=== PATIENT | male | born 1950 | race Caucasian/White ===

== ENCOUNTER 2016-09-25 12:04 | Emergency (ER) | payer MEDICARE, OTHER, MEDICAID ==
[~2016-09-25] VITALS: Ht 175.3 cm; Wt 86.4 kg
[~2016-09-25 12:04] MED LIST: ASPIRIN 32325 MG/TAB PO; CELEBREX 200MG200 MG PO; CLOPIDOGREL; DAZIDOX10 MG PO; FERRALET 901 TAB PO; FLOMAX 0.40.4 MG/CAP PO; FOLIC ACID 11 MG/TA1 PO; IMDUR 30MG30 MG/TAB PO; IMDUR30 MG PO; IRON90 MG PO; LEVEMIR100 U/ML SC; LOPRESSOR 225 MG/TAB PO; METOPROLOL SUCC25 MG PO; NAPROSYN500 MG PO; NEURONTIN300 MG/CAP; NOVOLOG FLEX100 U/ML SQ; NOVOLOG100 U/ML IV; OXYCONTIN15 MG PO; PERCOCET 325 MG1 TA2 PO; PERCOCET 325 MG1 TAB PO; PHENERGAN 25 TA25 MG PO; PRAVACHOL 40MG40 MG PO; PRAVACHOL20 MG PO; PRILOSEC10 MG PO; PRINIVIL20 MG PO; ROXICODONE 55 MG/TAB PO; SUPER EPA W/BO400 MG PO; TOPROL XL 25MG25 MG; TRILIPIX 135MG; VITAMIN C500 MG PO; ZOFRAN 4MG T4 MG/TAB PO
[2016-09-25 12:09] VITALS: TEMP 97.8
[2016-09-25 12:47] LABS: ADJUSTED CALCIUM 8.9 mg/dL (8.4-10.2); ALBUMIN 4.3 gm/dL (3.5-5.0); BILIRUBIN,TOTAL 0.6 mg/dL (0.0-1.0); CALCIUM 9.1 mg/dL (8.4-10.2); CREATININE, serum 1.74 mg/dL (0.66-1.25); POTASSIUM 4.6 mmol/L (3.4-5.0); TOTAL PROTEIN 7.1 gm/dL (6.4-8.2)
[2016-09-25 13:17] LABS: BASO % 0.4 % (0.0-2.0); EOS # 0.1 (0.0-0.7); EOS % 1.7 % (0-4.0); GRAN # 5.5 (1.4-6.5); GRAN % 73.6 % (42.2-75.2); HEMATOCRIT 42.1 % (42.0-52.0); HEMOGLOBIN 14.4 g/dl (13.5-18.0); MEAN CELL VOLUME 84 fl (80.0-100.0); MEAN CORPUSCULAR HEMOGLOBIN 29 pg (27.0-31.0); MEAN CORPUSCULAR HGB CONC 34 g/dl (33.0-37.0); MEAN PLATELET VOLUME 11.5 fl (7.4-10.4); MONO # 0.7 (0.1-0.6); MONO % 9.9 % (1.7-9.3); PLATELET COUNT 180 K/mm3 (130-400); RED BLOOD COUNT 5.03 M/mm3 (4.20-5.60); REDCELL DISTRIBUTION WIDTH-CV 13.4 % (11.5-14.5); WHITE BLOOD COUNT 7.4 K/mm3 (4.8-10.8)
[2016-09-25 14:39] VITALS: BP 130/81; PULSE 73
== END 2016-09-25 14:46 | disposition home or self-care (01) ==
LOC: COL.ER 12:04
PROVIDERS: Family Medicine
DX: E11.649 Type 2 diabetes mellitus with hypoglycemia without coma (principal); E86.0 Dehydration; I25.10 Atherosclerotic heart disease of native coronary artery without angina pectoris; F17.210 Nicotine dependence, cigarettes, uncomplicated; Z95.1 Presence of aortocoronary bypass graft; Z79.4 Long term (current) use of insulin; Z79.82 Long term (current) use of aspirin
CPT/HCPCS: J7030

== ENCOUNTER 2017-04-06 10:59 | Observation (INO) | payer MEDICARE, OTHER, MEDICAID ==
[~2017-04-06] VITALS: Ht 177.8 cm; Wt 97.4 kg
[~2017-04-06 10:59] MED LIST changes: -NEURONTIN300 MG/CAP; +NEURONTIN300 MG/CAP PO; +OMEGA-3 1000 MG1 CAP PO; -SUPER EPA W/BO400 MG PO
[2017-04-06] MEDS ORDERED: PROSCAR 5MG5 MG PO (11:11)
[2017-04-06] MEDS ORDERED: LOPRESSOR 225 MG/TAB PO (11:11)
[2017-04-06 11:28] LABS: HEMOGLOBIN 16.5 g/dl (13.5-18.0); MEAN CELL VOLUME 83 fl (80.0-100.0); MEAN CORPUSCULAR HEMOGLOBIN 28 pg (27.0-31.0); MEAN CORPUSCULAR HGB CONC 34 g/dl (33.0-37.0); MEAN PLATELET VOLUME 11.2 fl (7.4-10.4); PLATELET COUNT 147 K/mm3 (130-400); RED BLOOD COUNT 5.88 M/mm3 (4.20-5.60); REDCELL DISTRIBUTION WIDTH-CV 13.4 % (11.5-14.5)
[2017-04-06 11:37] LABS: ALBUMIN 4.7 gm/dL (3.5-5.0); BILIRUBIN,TOTAL 0.9 mg/dL (0.0-1.0); CALCIUM 9.4 mg/dL (8.4-10.2); CREATININE, serum 1.44 mg/dL (0.66-1.25); POTASSIUM 4.9 mmol/L (3.4-5.0); TOTAL PROTEIN 7.6 gm/dL (6.4-8.2)
[2017-04-06 12:40] LABS: COLLECTION METHOD CLEAN CATCH
[2017-04-06 12:42] LABS: BAND 34 % (0-10); LYMPHOCYTE 4 % (20.0-51.0); NEUTROPHILS 60 % (42.0-75.2); PLATELET ESTIMATE DECREASED (NORMAL)
[2017-04-06 12:49] LABS: MUCOUS Present /lpf; PH 5 (5-8); SQUAMOUS EPITHELIAL None Seen /hpf; URINE APPEARANCE Clear; URINE BACTERIA None Seen /hpf; URINE BILIRUBIN Negative (NEGATIVE); URINE BLOOD 1+ (NEGATIVE); URINE COLOR Yellow; URINE GLUCOSE 3+ (NEGATIVE); URINE KETONE 1+ (NEGATIVE); URINE LEUKOCYTE ESTERASE Negative (NEGATIVE); URINE NITRATE Negative (NEGATIVE); URINE PROTEIN(semi-quant) 2+ (NEGATIVE); URINE RBC 0-2 /hpf; URINE UROBILINOGEN Negative (NEGATIVE)
[2017-04-06] MEDS ORDERED: ZOFRAN 4MG T4 MG/TAB PO (13:22)
[2017-04-06 17:33] VITALS: BP 153/77; PULSE 98; TEMP 98.5
[2017-04-06 17:59] LABS: INFLUENZA A NEGATIVE; INFLUENZA B NEGATIVE
[2017-04-06 21:00] VITALS: BP 125/55; PULSE 75; TEMP 100.1
[2017-04-06 23:50] VITALS: BP 145/61; PULSE 91; TEMP 99.3
[2017-04-07 04:22] VITALS: BP 161/73; PULSE 74; TEMP 99.4
[2017-04-07 06:46] LABS: CALCIUM 7.6 mg/dL (8.4-10.2); CREATININE, serum 1.29 mg/dL (0.66-1.25); MAGNESIUM 1.6 mg/dL (1.6-2.3); POTASSIUM 3.6 mmol/L (3.4-5.0)
[2017-04-07 08:54] VITALS: BP 168/72; PULSE 76; TEMP 98.9
[2017-04-07] MEDS ORDERED: ZOFRAN 4MG T4 MG/TAB PO (09:09)
== END 2017-04-07 09:52 | disposition home or self-care (01) ==
LOC: COL.ER 10:59 → MEDICAL 16:18
PROVIDERS: Emergency Medicine; Internal Medicine
DX: K52.9 Noninfective gastroenteritis and colitis, unspecified (principal); N17.9 Acute kidney failure, unspecified; E11.649 Type 2 diabetes mellitus with hypoglycemia without coma; I25.10 Atherosclerotic heart disease of native coronary artery without angina pectoris; Z79.01 Long term (current) use of anticoagulants; Z96.641 Presence of right artificial hip joint; Z95.5 Presence of coronary angioplasty implant and graft; F17.210 Nicotine dependence, cigarettes, uncomplicated
CPT/HCPCS: G0378; J1815; J2405; J2550; J7030

== ENCOUNTER 2018-07-31 16:18 | Observation (INO) | payer MEDICARE, OTHER ==
[~2018-07-31] VITALS: Ht 175.3 cm; Wt 88.6 kg
[~2018-07-31 16:18] MED LIST changes: +PROSCAR 5MG5 MG PO
[2018-07-31 17:10] LABS: BASO % 0.5 % (0.0-2.0); EOS # 0.3 (0.0-0.7); EOS % 4.5 % (0-4.0); GRAN # 4.9 (1.4-6.5); HEMATOCRIT 41.8 % (42.0-52.0); HEMOGLOBIN 13.9 g/dl (13.5-18.0); LYMPH # 1.5 (1.2-3.4); LYMPH % 19.7 % (20.0-51.0); MEAN CELL VOLUME 87 fl (80.0-100.0); MEAN CORPUSCULAR HEMOGLOBIN 29 pg (27.0-31.0); MEAN CORPUSCULAR HGB CONC 33 g/dl (33.0-37.0); MEAN PLATELET VOLUME 10.6 fl (7.4-10.4); MONO # 0.7 (0.1-0.6); MONO % 9.2 % (1.7-9.3); PLATELET COUNT 183 K/mm3 (130-400); RED BLOOD COUNT 4.83 M/mm3 (4.20-5.60); REDCELL DISTRIBUTION WIDTH-CV 13.1 % (11.5-14.5)
[2018-07-31 17:23] LABS: ALBUMIN 3.8 gm/dL (3.5-5.0); BILIRUBIN,TOTAL 0.4 mg/dL (0.0-1.0); C-REACTIVE PROTEIN 5.1 mg/dL (0.0-0.9); CALCIUM 8.9 mg/dL (8.4-10.2); CREATININE, serum 1.32 (0.66-1.25); POTASSIUM 4.1 mmol/L (3.4-5.0); TOTAL PROTEIN 6.8 gm/dL (6.4-8.2)
[2018-07-31] MEDS ORDERED: PROSCAR 5MG5 MG PO (19:04)
[2018-07-31 20:15] LABS: COLLECTION METHOD CLEAN CATCH
[2018-07-31 20:21] LABS: MUCOUS Present /lpf; PH 5 (5-8); SQUAMOUS EPITHELIAL None Seen /hpf; URINE APPEARANCE Clear; URINE BACTERIA None Seen /hpf; URINE BILIRUBIN Negative (NEGATIVE); URINE BLOOD Negative (NEGATIVE); URINE COLOR Straw; URINE GLUCOSE Negative (NEGATIVE); URINE KETONE Negative (NEGATIVE); URINE LEUKOCYTE ESTERASE Negative (NEGATIVE); URINE NITRATE Negative (NEGATIVE); URINE PROTEIN(semi-quant) Negative (NEGATIVE); URINE RBC 0-2 /hpf; URINE UROBILINOGEN Negative (NEGATIVE)
[2018-07-31] MEDS ORDERED: NEURONTIN600 MG/TAB PO (21:00)
--- NOTE | 2018-07-31 21:00 | NUR ---
07/31 2099 PATIENT ADMITTED TO THE FLOOR FROM ER FOR DIVERTICULITIS. UPON ARRIVAL TO FLOOR PATIENT A/O X 4. DENIES C/O OF PAIN OR DISCOMFORT. REPORTS CONCERNS OF HYPOGLYCEMIA D/T BEING ON CLEAR LIQUIDS. DENIES SYPTOMS OF HYPOGLYCEMIA AT THIS TIME. SEE CHART FOR BLOOD GLUCOSE OBTAINED AND INTERVENTIONS. ADMISSIONS ASSESSMENTS COMPLETED. LUNG SOUNDS CLEAR THROUGHOUT WITH GOOD AIR EXCHANGE. HEART REGULAR RATE AND RHYTHM. NO SKIN ISSUES OBSERVED OR REPORTED. REPORTS NEUROPATHY IN BILATERAL LOWER EXTREMITIES.
[2018-07-31 21:08] VITALS: BP 168/76; PULSE 64; TEMP 97.7
[2018-07-31 22:59] LABS: COLLECTION METHOD CLEAN CATCH
[2018-07-31 23:12] VITALS: BP 153/78; PULSE 58; TEMP 97.8
[2018-07-31 23:14] LABS: PH 5 (5-8); SQUAMOUS EPITHELIAL None Seen /hpf; URINE APPEARANCE Clear; URINE BACTERIA None Seen /hpf; URINE BILIRUBIN Negative (NEGATIVE); URINE BLOOD Negative (NEGATIVE); URINE COLOR Straw; URINE GLUCOSE Negative (NEGATIVE); URINE KETONE Negative (NEGATIVE); URINE LEUKOCYTE ESTERASE Negative (NEGATIVE); URINE NITRATE Negative (NEGATIVE); URINE PROTEIN(semi-quant) Negative (NEGATIVE); URINE RBC 0-2 /hpf; URINE UROBILINOGEN Negative (NEGATIVE)
--- NOTE | 2018-07-31 23:37 | NUR ---
IV moved to left forearm. Left AC INT at this time.
--- NOTE | 2018-08-01 04:17 | NUR ---
PATIENT LAYING AWAKE IN BED. ATTITUDE CALM AND QUIET. DENIES C/O PAIN OR DISCOMFORT. NO NAUSEA OR VOMITTING. CONTINUES WITH BOWEL PREP ORDERED. NO BOWEL MOVEMENTS OBSERVED OR REPORTED.
--- NOTE | 2018-08-01 05:56 | NUR ---
PATIENT UP TO BATHROOM. LARGE LOOSE WATERY STOOL. BROWNISH RED IN COLOR WITH NO VISIBLE BLOOD CLOTS. DENIES C/O OF NAUSEA OR ABD PAIN. FLAGYL 500MG IV STARTED @ 100ML/HR ORDERED. PATIENT CONTINUING TO WORK ON BOWEL PREP ORDERED. ENCOURAGED TO TRY AND DRINK MUCH TOLERABLE OVER NEXT HOUR. PATIENT PLEASANT AND COOPERATIVE DURING CARES AT THIS TIME.
[2018-08-01 05:58] LABS: BASO % 0.8 % (0.0-2.0); EOS # 0.3 (0.0-0.7); EOS % 6.6 % (0-4.0); GRAN # 2.6 (1.4-6.5); GRAN % 52.7 % (42.2-75.2); HEMOGLOBIN 13.2 g/dl (13.5-18.0); LYMPH # 1.4 (1.2-3.4); LYMPH % 28.1 % (20.0-51.0); MEAN CELL VOLUME 87 fl (80.0-100.0); MEAN CORPUSCULAR HEMOGLOBIN 29 pg (27.0-31.0); MEAN CORPUSCULAR HGB CONC 33 g/dl (33.0-37.0); MEAN PLATELET VOLUME 10.6 fl (7.4-10.4); MONO # 0.6 (0.1-0.6); MONO % 11.6 % (1.7-9.3); PLATELET COUNT 156 K/mm3 (130-400); RED BLOOD COUNT 4.62 M/mm3 (4.20-5.60); REDCELL DISTRIBUTION WIDTH-CV 13.1 % (11.5-14.5)
[2018-08-01 06:05] LABS: CALCIUM 8.7 mg/dL (8.4-10.2); CREATININE, serum 1.22 (0.66-1.25)
--- NOTE | 2018-08-01 06:50 | NUR ---
Report given to VICKY Amaya.
[2018-08-01 07:05] VITALS: BP 156/73; PULSE 56; TEMP 97.9
--- NOTE | 2018-08-01 08:35 | NUR ---
Assessment complete.patient awake,a/ox3.denies pain or discomfort at this time.LSCTA.IVF infusing.patient reports having bright red stools while on bowel prep.clonscopy scheduled for 1230 today.encouraged patient to keep drinking miralax.voiced understanding.all meds given.patient denies any needs at this time.will continue to monitor.call light in reach
--- NOTE | 2018-08-01 10:43 | NUR ---
PAT and EDWARDM met with patient about change in status. NCM explained to patient the difference between inpatient and observation. SW presented [place] form to kosta. He signed and was provided a copy. PAT then met with patient about discharge planning. Patient lives independently at home. Patient does not use any DME or home health. Patient's PCP is Dr Brennan and he obtain prescriptions from [facility]. Patient does not have a DPOA and is not interested in obtaining one at this time. PAT does not anticipate any discharge needs.
[2018-08-01 10:58] VITALS: BP 151/71; PULSE 54; TEMP 97.6
--- NOTE | 2018-08-01 11:02 | NUR ---
Initial visit; Patient thanked Jewel Hole Driller for looking in on him and stated that he is Jew and thanked Jewel Hole Driller for offering God's blessings.
--- NOTE | 2018-08-01 12:00 | NUR ---
PT TAKEN TO ENDOSCOPY FOR A COLONSCOPY.
--- NOTE | 2018-08-01 13:34 | NUR ---
PT RETURN TO ROOM AT THIS TIME.AWAK AND AMBULATING.DENIES ANY NEEDS AT THIS TIME.WILL CONTINUE TOO MONITOR.CALL LIGHT IN REACH
[2018-08-01 15:32] VITALS: BP 144/51; PULSE 64; TEMP 97.6
--- NOTE | 2018-08-01 16:47 | NUR ---
PT RESTING IN BED AT THIS TIME.TOLERATED FOOD WELL.IVF INFUSING.VSS.DENIES ANY NEEDS AT THIS TIME.CALL LIGHT IN REACH
--- NOTE | 2018-08-01 18:24 | NUR ---
PATIENT RESTING IN BED AT THIS TIME.DENIES ANY NEEDS AT THIS TIME.DENIES ANY MORE GI BLEED AT THIS TIME.IVF INFUSING.WILL CONTINUE TO MONITOR.CALL LIGHT IN REACH
--- NOTE | 2018-08-01 18:46 | NUR ---
REPORT GIVEN TO MIREYA RN.
[2018-08-01 20:04] VITALS: BP 169/66; PULSE 60; TEMP 98.1
--- NOTE | 2018-08-01 21:19 | NUR ---
ASSESSMENT COMPLETED AT 1999. PATIENT LAYING IN BED WATCH TV AND PLAYING ON PHONE. DENIES C/O OF PAIN OR DISCOMFORT. NO NAUSEA OR ABD PAIN. FINISHED FULL LIQUID MEAL WITH NO COMPLAINTS. IV FLUIDS AND ANTIBIOTICS INFUSING ORDERED. NOVOLG 4 UNITS SQ GIVEN ORDERED FOR BLOOD GLUCOSE OF 284. CONTINUE TO HOLD LEVEMIR. PATIENT DENIES NEEDS OR CONCERNS AT END OF VISIT.
[2018-08-01 23:46] VITALS: BP 132/77; PULSE 54; TEMP 98.1
--- NOTE | 2018-08-02 00:21 | NUR ---
Patient resting in bed asleep. Call light in reach.
[2018-08-02 03:32] VITALS: BP 146/61; PULSE 51; TEMP 97.5
--- NOTE | 2018-08-02 06:08 | NUR ---
PATIENT HAD UNEVENTFUL NIGHT. NO COMPLAINTS OF PAIN OR DISCOMFORT. NO NAUSEA OR VOMITTING. NO OBSERVED OR REPORTED BLLODY STOOLS. IV ANTIBIOTICS AND FLUIDS ADMINISTERED ORDERED. LEVEMIR HELD PER ORDER. CONTINUES WITH FULL LIQUID DIET WITH NO COMPLICATIONS.
[2018-08-02 06:12] LABS: BASO % 0.7 % (0.0-2.0); EOS # 0.3 (0.0-0.7); EOS % 7.4 % (0-4.0); GRAN # 1.8 (1.4-6.5); GRAN % 44.3 % (42.2-75.2); HEMATOCRIT 38.4 % (42.0-52.0); HEMOGLOBIN 12.7 g/dl (13.5-18.0); LYMPH # 1.5 (1.2-3.4); LYMPH % 37.5 % (20.0-51.0); MEAN CELL VOLUME 87 fl (80.0-100.0); MEAN CORPUSCULAR HEMOGLOBIN 29 pg (27.0-31.0); MEAN CORPUSCULAR HGB CONC 33 g/dl (33.0-37.0); MEAN PLATELET VOLUME 10.9 fl (7.4-10.4); MONO # 0.4 (0.1-0.6); MONO % 9.9 % (1.7-9.3); PLATELET COUNT 144 K/mm3 (130-400); RED BLOOD COUNT 4.43 M/mm3 (4.20-5.60); REDCELL DISTRIBUTION WIDTH-CV 12.7 % (11.5-14.5)
[2018-08-02 06:27] LABS: CALCIUM 8.5 mg/dL (8.4-10.2); CREATININE, serum 1.24 (0.66-1.25); POTASSIUM 4.2 mmol/L (3.4-5.0)
--- NOTE | 2018-08-02 06:56 | NUR ---
Report given to Yodit Amaya
[2018-08-02 07:28] VITALS: BP 174/81; PULSE 54; TEMP 98.2
--- NOTE | 2018-08-02 08:00 | NUR ---
ASSESSMENT COMPLETE.PATIENT AWAKE.A/OX3.DENIES PAIN OR DISCOMFORT AT THIS TIME.LSCTA.PT DENIES N/V/D.DENIES HAVING ANY BLOODY STOOL.STATES HE FEELS BETTER.IVF INFUSING.DIET ADVANCED.NO OTHER CONCERNS VOICE AT THIS TIME.CALL LIGHT IN REACH
--- NOTE | 2018-08-02 08:28 | NUR ---
received report from VICKY mesa.
[2018-08-02] MEDS ORDERED: CIPRO 500MG TA500 MG PO (09:31)
[2018-08-02] MEDS ORDERED: FLAGYL500 MG PO (09:32)
[2018-08-02 10:59] VITALS: BP 151/74; PULSE 55; TEMP 97.7
--- NOTE | 2018-08-02 11:40 | NUR ---
pt discharge home at this time.all discharge instructions reviewed.iv and tele discontinued.all questions answered.all belongings taken and all paperwork signed.This RN escorted patient out.
== END 2018-08-02 11:44 | disposition home or self-care (01) ==
LOC: COL.ER 16:18 → MEDICAL 18:11
PROVIDERS: Family Medicine; Nurse Practitioner Family; ADMIT Internal Medicine
DX: K92.1 Melena (principal); K57.30 Diverticulosis of large intestine without perforation or abscess without bleeding; Z86.010 Personal history of colon polyps; I25.10 Atherosclerotic heart disease of native coronary artery without angina pectoris; I25.2 Old myocardial infarction; Z95.1 Presence of aortocoronary bypass graft; I12.9 Hypertensive chronic kidney disease with stage 1 through stage 4 chronic kidney disease, or unspecified chronic kidney disease; E11.22 Type 2 diabetes mellitus with diabetic chronic kidney disease; N40.0 Benign prostatic hyperplasia without lower urinary tract symptoms; N18.9 Chronic kidney disease, unspecified; E11.40 Type 2 diabetes mellitus with diabetic neuropathy, unspecified; Z85.46 Personal history of malignant neoplasm of prostate; E11.649 Type 2 diabetes mellitus with hypoglycemia without coma; Z79.4 Long term (current) use of insulin; Z79.82 Long term (current) use of aspirin; F17.290 Nicotine dependence, other tobacco product, uncomplicated; Z80.0 Family history of malignant neoplasm of digestive organs; Z83.79 Family history of other diseases of the digestive system; Z96.641 Presence of right artificial hip joint
CPT/HCPCS: G0378; J0744; J1815; J2405; J2704; J3010; J7030; Q9967

== ENCOUNTER → 2018-08-15 | Outpatient (CLI) | payer MEDICARE, OTHER ==
[~2018-08-15] MED LIST changes: +CIPRO 500MG TA500 MG PO; +FLAGYL500 MG PO; +NEURONTIN600 MG/TAB PO
== END ==
LOC: MHCPAIN 15:09
DX: G89.29 Other chronic pain (principal); M47.817 Spondylosis without myelopathy or radiculopathy, lumbosacral region; M53.3 Sacrococcygeal disorders, not elsewhere classified
CPT/HCPCS: G0463

== ENCOUNTER → 2018-08-17 | Outpatient (CLI) | payer MEDICARE, OTHER | LOC: MHCPAIN 14:45 | DX: M47.817 Spondylosis without myelopathy or radiculopathy, lumbosacral region (principal); M54.16 Radiculopathy, lumbar region | CPT/HCPCS: J1040; Q9967 ==

== ENCOUNTER → 2018-09-19 | Outpatient (CLI) | payer MEDICARE, OTHER | LOC: MHCPAIN 15:02 | DX: G89.29 Other chronic pain (principal); M47.817 Spondylosis without myelopathy or radiculopathy, lumbosacral region; M53.3 Sacrococcygeal disorders, not elsewhere classified | CPT/HCPCS: G0463 ==

== ENCOUNTER → 2021-08-20 | Outpatient (CLI) | payer MEDICARE | LOC: COL.RAD 14:00 | DX: C61 Malignant neoplasm of prostate (principal); K76.0 Fatty (change of) liver, not elsewhere classified; K82.9 Disease of gallbladder, unspecified; R07.81 Pleurodynia; I51.7 Cardiomegaly; K44.9 Diaphragmatic hernia without obstruction or gangrene | CPT/HCPCS: Q9967 ==

== ENCOUNTER → 2021-09-08 | Outpatient (CLI) | payer MEDICARE, MEDICAID | LOC: COL.RAD 09-03 09:15 | DX: S24.112A Complete lesion at T2-T6 level of thoracic spinal cord, initial encounter (principal); X58.XXXA Exposure to other specified factors, initial encounter | CPT/HCPCS: A9503 ==

== ENCOUNTER 2021-11-06 05:33 | Day surgery (SDC) | payer MEDICARE, MEDICAID ==
[~2021-11-06] VITALS: Ht 175.3 cm; Wt 97.5 kg
[2021-11-06] VITALS (11 sets, daily range): BP systolic 111–153; BP diastolic 62–79; PULSE 49–73; TEMP 98.5
[2021-11-06] MEDS ORDERED: COREG 6.256.25 MG/TA PO (06:05)
[2021-11-06] MEDS ORDERED: PRILOTC PO (06:32)
[2021-11-06] MEDS ORDERED: LIPITOR 40MG TA40 MG PO (06:33)
[2021-11-06] MEDS ORDERED: APRESOLINE50 MG PO (06:34)
[2021-11-06] MEDS ORDERED: TYLENOL 8 HR PO (06:34)
--- NOTE | 2021-11-06 06:48 | NUR ---
NISHA Jay was notified of the patient's blood sugar reading of 217 and his blood pressure reading of 187/69. He verbalized understanding of the report given and has no further orders for the nurse at this time.
--- NOTE | 2021-11-06 06:57 | NUR ---
The patient has been taken back to the operating room via cart and his chart was sent with him to surgery. The patient's belongings were taken over to the recovery room and will be transferred with the patient to his room post operatively.
[2021-11-06] MEDS ORDERED: PROSCAR 5MG5 MG PO (13:07)
[2021-11-06] MEDS ORDERED: FLOMAX 0.40.4 MG/CAP PO (13:08)
--- NOTE | 2021-11-06 17:07 | NUR ---
PT A/OX4, ARRIVED TO THE FLOOR AT 1123 FROM PACU, WITH IV INFUSING WELL ON LH, SOL CATHETER DRAINING BRIGHT RED URINE, TOLERATING FLUIDS WELL, REFUSED TO WEAR SCD PUMP, WITH 6 ABDOMINAL INCISIONS SKIN GLUED CLEAN DRY AND INTACT, VITALS TAKEN AND MONITORED, NEEDS AND CONCERNS ADDRESSED, PERSONAL ITEMS AND CALL LIGHT WITHIN REACH.
--- NOTE | 2021-11-06 17:54 | NUR ---
CONTACTED MADE HIM AWARE OF ELEVATED BLOOD GLUCOSE, ORDERS OBTAINED
--- NOTE | 2021-11-06 20:00 | NUR ---
PT AMBULATES IN HALLWAY WITH STAFF X2. IS ALERT AND ORIENTED X4. PT REFUSES SCDS WHEN BACK TO BED. HAS IVF INFUSING TO LEFT HAND WITHOUT PROBLEM. DENIES PAIN. ABD DISTENDED WITH ROBOTIC SITES X6 GLUED AND DRY. SOL TO BSD WITH HEMATURIA NOTED. HAS NOT PASSED GAS, REMAINS ON CLEAR LIQUIDS.
[2021-11-07] VITALS (7 sets, daily range): BP systolic 121–149; BP diastolic 52–70; PULSE 56–65; TEMP 97.7–98.6
--- NOTE | 2021-11-07 04:00 | NUR ---
PT ASKING FOR PAIN MEDS, SCHEDULED TORADOL GIVEN. IVF INFUSING TO LEFT HAND WITHOUT PROBLEM. HAS PASSED GAS, INCREASED DIET TO ADA.
[2021-11-07 06:37] LABS: HEMOGLOBIN 11.6 g/dl (13.5-18.0)
[2021-11-07 06:53] LABS: CALCIUM 8.2 mg/dL (8.4-10.2); CREATININE, serum 1.82 mg/dL (0.72-1.25); POTASSIUM 4.6 mmol/L (3.5-4.5)
[2021-11-07 06:58] LABS: HEMATOCRIT 35.7 % (42.0-52.0)
--- NOTE | 2021-11-07 09:00 | NUR ---
PATIENT IS A&O. VSS. REPORTS MILD DISCOMFORT, MOSTLY C/O FEELING A LITTLE BLOATED. NURSING GAVE POST OP ROBOTIC EDUCATION AND IMPORTANCE OF AMBULATION. PATIENT EXPRESSED CONCERNED ABOUT ONLY AMBULATED ONCE THE EVENING OF SURGERY. AFTER HEAT TO TOE ASSESSMENT AND AM MEDS WERE GIVEN, NURSING AMBULATED PATIENT AROUND THE SURGICAL/IPR UNIT. TOLERATING ACTIVITY WELL. PATIENT REQUESTING TO GO BACK TO BED VERSES SITTING UP IN BEDSIDE CHAIR. IV FLUIDS INFUSING VIA PUMP INTO LEFT HAND IV. NO C/O N/V. ABD IS DISTENDED, FIRM AND WITH HYPO BOWL SOUNDS NOTED. NOT PASSING GAS YET. ABD LAP SITES X6 WELL APPROXIMATED AND WITH GLUED CLOSURE. SOL TO DD WITH MOD AMOUNTS OF DARK URINE NOTED WITH A FEW SMALL CLOTS. NURSING ENCOURAGED ORAL INTAKE. PATIENT HOPING TO DISCHARGE HOME WITH SOL LATER TODAY. NURSING STARTED THE LEG/SOL BAG TEACHING BUT WILL GO OVER THIS MORE BEFORE DISCHARGE. NO OTHER NEEDS AT THIS TIME. CALL LIGHT IN REACH.
--- NOTE | 2021-11-07 11:18 | NUR ---
SW met with patient to complete intake. Patient states that he lives right outside of [facility] and close to [place]. Patient provides that he lives alone and has a close friend named Emiliano [phone]. Patient does not utilize DME, is independent with ADL's and does not obtain any HH services at this time. Patient provides that his PCP is Dr. Brennan, and pharmacy is the [facility]. Patient does not have anyone appointed as DPOA of and did not wish to appoint anyone at this time. Patient plans to return to his home upon DC and had no questions nor concerns with doing so. SW will continue to follow. DC plan: home
--- NOTE | 2021-11-07 11:47 | NUR ---
SW informed by nurse that patient would prefer to go to SNF to obtained services needed. Due to patient's insurance patient would need to be pre-authorized in order to see if he would qualify for services. [employer] faxed to [employer], patient informed as well as nurse and physician of above information. PAT will continue to follow.
--- NOTE | 2021-11-07 13:25 | NUR ---
PATIENT AMBULATING IN HALLS AGAIN AFTER LUNCH. TOLERATING ACTIVITY.
--- NOTE | 2021-11-07 15:30 | NUR ---
NURSING WENT OVER SOL CATH CARE AND DEMONSTRATED BED TO LEG BAG CHANGE. PATIENT VERBALIZED UNDERSTANDING BUT EXPRESSED HE IS "A SLOW LEARNER". NURSING STATED WE COULD GO OVER THIS AGAIN. PATIENT STILL WANTING TO DISCHARGE HOME TOMORROW WITH HOME HEALTH SERVICES TO COME TUESDAY.
--- NOTE | 2021-11-07 20:00 | NUR ---
PT AMBULATING IN HALLWAY ON OWN. SOL WITH PALE YELLOW URINE. INT TO LT HAND. IS ALERT AND ORIENTED X4.
--- NOTE | 2021-11-07 21:30 | NUR ---
PT IN BED, TAKES HS MEDS WITHOUT PROBLEM. SOL PATENT. DENIES NEED FOR PAIN MEDS. ABD DISTENDED, FIRM, PASSING FLATUS. ROBOTIC SITES GLUED/DRY.
[2021-11-08 03:38] VITALS: BP 142/72; PULSE 60; TEMP 98.7
--- NOTE | 2021-11-08 06:30 | NUR ---
PT TAKES SCHEDULED ES TYLENOL AND REFUSES PROTONIX. SOL WITH GREAT URINE OUTPUT, REMAINS LIGHT YELLOW.
[2021-11-08 08:00] VITALS: BP 147/60; PULSE 60; TEMP 97.8
--- NOTE | 2021-11-08 08:00 | NUR ---
PATIENT IS A&O. VSS. REPORTS NO DISCOMFORT. ABD LAP SITES X6 ARE WELL APPROXIMATED WITH GLUED CLOSURE. ABD BLOATING IS BETTER. ABD IS ROUND, SOFT AND WITH POSITIVE BOWL SOUNDS. PASSING GAS. NO BM. NO C/O N/V. LEFT HAND IV TO INT. PATIENT AMBULATING IN HALLS THIS AM, TOLERATING ACTIVITY. SOL TO DD WITH LARGE AMOUNTS OF YELLOW URINE NOTED WITH OCCATIONAL SMALL TISSUE CLOTS. PATIENT HOPING TO DISCHARGE HOME TODAY WITH HH. SOL WILL STAY IN X2 WEEK PER UROLOGY. NURSING WILL PROVIDE SOL EDUCATION AGAIN TODAY FOR IMPROVED UNDERSTANDING. NO OTHER NEEDS AT THIS TIME. CALL LIGHT IN REACH.
--- NOTE | 2021-11-08 10:10 | NUR ---
CALLED SW TO LET THEM KNOW PATIENT HAS DISCHARGE ORDERS AND TO WRAP UP THE HOME HEALTH PORTION BEFORE PATIENT LEAVES LATER TODAY. SW TO COME VISIT WITH PATIENT TO FINISH PLANS.
--- NOTE | 2021-11-08 10:31 | NUR ---
PAT reached out to [facility] in [place] for update on referral. Virgilio reports they are waiting on insurance- [employer]. [facility] is not answering. pt needs HH tuesday due to cath. [facility] can take tuesday. PAT spoke with pt and he was comfortable doing his cath care until tuesday and RN to give pt cath care education. PAT called [facility] and confirmed and they said they would reach out tuesday morning to get his schedule setup for him. PAT faxed DC orders to [facility].
[2021-11-08 12:00] VITALS: BP 174/99; PULSE 58; TEMP 98
--- NOTE | 2021-11-08 13:50 | NUR ---
PATIENT'S RIDE HERE. DISCHARGE INSTRUCTIONS HAVE BEEN GIVEN. RE-EDUCATED ON CATH CARES AND CHANGING LEG/BED BAG. CATH SUPPLIES SENT HOME WITH PATIENT. DC'D IV SITE AND COVERED WITH [employer]. ANSWERED QUESTIONS/CONCERNS. PATIENT IS DRESSED, PACKED AND ESCORTED OUT TO PERSONAL VEHICLE. DISCHARGE TO HOME WITH HH TO SEE PATIENT ON TUESDAY PER .
== END 2021-11-08 13:50 | disposition home health service (06) ==
LOC: SDCO 05:33 → SURG 11:36 → SDCO 11-08 13:50
PROVIDERS: Urology
DX: C61 Malignant neoplasm of prostate (principal); N40.1 Benign prostatic hyperplasia with lower urinary tract symptoms; R39.15 Urgency of urination; R39.12 Poor urinary stream; R35.0 Frequency of micturition; E11.22 Type 2 diabetes mellitus with diabetic chronic kidney disease; I12.9 Hypertensive chronic kidney disease with stage 1 through stage 4 chronic kidney disease, or unspecified chronic kidney disease; I25.2 Old myocardial infarction; N18.9 Chronic kidney disease, unspecified; K21.9 Gastro-esophageal reflux disease without esophagitis; E11.42 Type 2 diabetes mellitus with diabetic polyneuropathy; Z95.1 Presence of aortocoronary bypass graft; Z79.4 Long term (current) use of insulin; Z95.5 Presence of coronary angioplasty implant and graft; Z79.82 Long term (current) use of aspirin
CPT/HCPCS: OP; A4314; A9284; J0360; J0690; J1100; J1170; J1815; J1885; J2250; J2405; J2704; J3010; J7120